=== PATIENT | male | born 1960 | race Caucasian/White ===

== ENCOUNTER → 2023-05-31 | Outpatient (CLI) | payer OTHER | END | disposition home or self-care (01) | LOC: RAH 09:27 | PROVIDERS: ATTEND Internal Medicine Cardiovascular Disease | DX: I71.40 Abdominal aortic aneurysm, without rupture, unspecified (principal); I70.0 Atherosclerosis of aorta | CPT/HCPCS: 76775 ==

== ENCOUNTER → 2023-05-31 | Outpatient (CLI) | payer OTHER | END | disposition home or self-care (01) | LOC: OIH 14:09 → EDUNIT# 14:30 | PROVIDERS: ATTEND Internal Medicine Cardiovascular Disease | DX: I71.40 Abdominal aortic aneurysm, without rupture, unspecified (principal) | CPT/HCPCS: 75571 ==